=== PATIENT | male | born 1960 | race Caucasian/White ===

== ENCOUNTER 2017-04-30 09:46 | Day surgery (SDC) | payer OTHER ==
[~2017-04-30] VITALS: Ht 175.3 cm; Wt 106.6 kg
[~2017-04-30 09:46] MED LIST: COZAAR100 MG PO; METOPROLOL SUC100 MG PO; NORVASC10 MG PO
--- NOTE | 2017-04-30 11:11 | NUR ---
04/30/17 Darrius BerkleyReuben dawson SAT 95%, O2 DECREASED TO 6L VIA MASK.
--- NOTE | 2017-05-02 12:08 | OR ---
[facility] [address] [place], [place] [address] Signed PREOPERATIVE DIAGNOSES Father with the history of colonic polyps. Personal history of colonic polyps (2011). Diverticulosis. Internal hemorrhoids. External anal skin tags. POSTOPERATIVE DIAGNOSES A 7 mm polyp at 45 cm. A 7 mm polyp at 65 cm. Minimal to moderate sigmoid diverticulosis. Internal hemorrhoids. An external anal skin tag x1. PROCEDURES: Colonoscopy with hot biopsy. ESTIMATED BLOOD LOSS: None. INDICATIONS Dwaine is a 56-year-old gentleman who had come to us in 2011 for his colonoscopy . He had colonic polyps removed at that time and is also known to have the diverticulosis with internal hemorrhoids. He also has external anal skin tags. We know that his father also has colonic polyps removed. In the meantime, Dwaine says he is doing well except for his umbilical hernia. It has gotten larger. It is now incarcerated and bothers him quite a bit while at work. He wants to repair that here in the weeks ahead. For his colonoscopy, I gave him a pamphlet on colonoscopy and we looked at that together. He understands the nature of the test along with the risks including, but not limited to gas bloating, crampy abdominal pain, bleeding, perforation, requiring surgery, and missed diagnosis. He also understands the need for IV conscious sedation. Given his daily alcohol intake, we used an anesthesia provider previously and again we have scheduled his colonoscopy with an anesthesia provider. He has expressed understanding and wished to proceed. PROCEDURE NOTE Dwaine was taken into our endoscopy suite and placed in the left lateral decubitus position. He was given IV sedation per nurse business quality assurance analyst with Propofol. A digital rectal exam was performed and he does have moderate external anal skin tag on the right side. Also, his prostate gland is a little indurated, slightly enlarged, consistent with his age. The adult colonoscope was then introduced and advanced all around into the cecum under direct visualization of camera without difficulty. His prep was quite good. The scope was then slowly withdrawn. The above-mentioned polyps were easily removed with the help of hot biopsy forceps. Once again, we could see the sigmoid diverticulosis. They were minimal to moderate in size, minimal to moderate in number and scattered about. The Electronically Signed By: SHEILA MATTHEWS MD 05/02/17 1208 PATIENT NAME: DWAINE GRANADOS OPERATIVE REPORT DATE OF : 56 PHYSICIAN: SHEILA MATTHEWS MD REPORT #: [id number] REPORT IS CONFIDENTIAL AND NOT TO BE RELEASED WITHOUT AUTHORIZATION [facility] [address] [place], [place] [address] Signed rectum was unremarkable. Upon retroflexion of scope, he does have a single dominant internal anal hemorrhoid column. After this, the gas was suctioned out, the colonoscope removed. Dwaine tolerated the procedure quite well. RECOMMENDATIONS I will see Dwaine back in my office in 7 to 14 days to review his results. He will need to stay on the 5-year rotation. MD ADRIANNE Pink/Levi /[id number] cc: Dr. Thony Esteves Electronically Signed By: SHEILA MATTHEWS MD 05/02/17 1208 PATIENT NAME: DWAINE GRANADOS OPERATIVE REPORT DATE OF : 56 PHYSICIAN: SHEILA MATTHEWS MD REPORT #: [id number] REPORT IS CONFIDENTIAL AND NOT TO BE RELEASED WITHOUT AUTHORIZATION
== END 2017-04-30 11:36 | disposition home or self-care (01) ==
LOC: DS 09:46 → OPS 09:46
PROVIDERS: Colon & Rectal Surgery
PROC: 0DBE8ZX Excision of Large Intestine, Via Natural or Artificial Opening Endoscopic, Diagnostic (ICD-10-PCS; principal; 2017-04-30 10:30)
DX: K63.5 Polyp of colon (principal); K64.4 Residual hemorrhoidal skin tags; K64.8 Other hemorrhoids; K57.30 Diverticulosis of large intestine without perforation or abscess without bleeding; I10 Essential (primary) hypertension; G47.33 Obstructive sleep apnea (adult) (pediatric); Z87.11 Personal history of peptic ulcer disease; Z86.010 Personal history of colon polyps; Z83.71 Family history of colonic polyps; Z87.891 Personal history of nicotine dependence; Z98.42 Cataract extraction status, left eye; Z98.52 Vasectomy status; Z98.890 Other specified postprocedural states
CPT/HCPCS: 00810; J2250; J2704; J3010; J7120

== ENCOUNTER 2017-05-16 07:00 | Day surgery (SDC) | payer OTHER ==
[~2017-05-16] VITALS: Ht 175.3 cm; Wt 106.1 kg
--- NOTE | 2017-05-16 10:07 | NUR ---
05/16/17 1007 Zoila Menchaca 0954 ARRIVED VIA STRETCHER TO PACU VERY SLEEPY. 1005 PT AWAKE WITH NO C/O'S AT THIS TIME.
[2017-05-16] MEDS ORDERED: NORCO 10-325 T1 EACH PO (10:12)
--- NOTE | 2017-05-16 12:03 | NUR ---
AMB WELL. DENIES NEED TO VOID. RATES PAIN 3/10. STATES THIS IS ACCEPTABLE. WANTS TO GO HOME.
--- NOTE | 2017-05-16 12:04 | NUR ---
HAS EATEN CRACKERS AND JELLO AND DRANK 2 CUPS COFFEE.
--- NOTE | 2017-05-16 12:48 | NUR ---
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 HIS DOESN'T GO TO WORK FOR 2 WKS, SAID SHE WILL KEEP AN EYE ON HIM. I FOUND HIM PLEASANT, SEEMED PREPARED, ALERT AND ORIENTED. DECLINED PRAYER AT THIS TIME
--- NOTE | 2017-05-17 11:54 | OR ---
[facility] [address] [place], [place] [address] Signed DATE OF SERVICE: 05/16/2017 PREOPERATIVE DIAGNOSIS: Incarcerated umbilical hernia (15 mm). POSTOPERATIVE DIAGNOSIS: Incarcerated umbilical hernia (15 mm). PROCEDURE: Primary umbilical herniorrhaphy with intraabdominal Ventralex mesh (8 cm). ESTIMATED BLOOD LOSS: None. INDICATIONS: Dwaine is a 56-year-old gentleman who came to the office with an incarcerated umbilical hernia. He said he has had it for quite a few years. 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 He does a l ot of heavy work and he has to lean up against the edge of the counter and so forth. He said the hernia was getting larger and more tender to the point it was affecting him at work, consequently, he had mentioned it to his primary care provider. Sure enough, in the office, he has an incarcerated broad umbilical hernia. I gave him a booklet on hernias and we looked at that together in detail. He understands the nature of an umbilical hernia along with the difference between the primary suture repair and a mesh repair. He also understands expected intraop and postop course. There is risk including, but not limited to bleeding, infection, scarring, change in contour of the skin, damage to bowel, infection of mesh requiring removal, recurrent hernias and chronic pain. He had expressed understanding and wished to proceed. PROCEDURE NOTE: I met with Dwaine and his in the preop area. We all agreed we were repairing the umbilical hernia. After this, he was taken into the operating room and placed in the supine position under general endotracheal tube anesthesia. He was given preoperative antibiotics along with subcutaneous heparin. SCDs were utilized. He was then prepped and draped in the usual sterile fashion. All trocars were placed in usual positions under direct visualization of camera without difficulty. We utilized our standard infraumbilical transverse incision and carried it down around the umbilicus bluntly and with the cautery. We reduced quite a bit of incarcerated omentum and placed back into the abdomen. The hernia sac had been excised and passed off the field. We then placed our 8-cm round Ventralex mesh in the abdominal cavity and brought it up flush against the posterior abdominal wall. The fascial defect was closed transversely with a running #1 Prolene suture. Several passes of the suture went through the tab on the mesh to help hold it in place. The tab was then cut, flushed with the abdominal wall and discarded. After this, local anesthetic was copiously injected into the operative field. The wound Electronically Signed By: SHEILA MATTHEWS MD 05/17/17 1154 PATIENT NAME: DWAINE GRANADOS OPERATIVE REPORT DATE OF : 56 PHYSICIAN: SHEILA MATTHEWS MD REPORT #: [id number] REPORT IS CONFIDENTIAL AND NOT TO BE RELEASED WITHOUT AUTHORIZATION [address] [address] Signed was irrigated and suctioned out until clear. The umbilical skin was held down the midline fascia with an interrupted 2-0 PDS suture. The skin and dermis was then reapproximated with interrupted 3-0 subcuticular Monocryl sutures. Dry gauze and tape was then applied. Dwaine was then awakened from his anesthesia, extubated in the OR, taken to recovery room in stable condition. MD ADRIANNE Pink/Levi /[id number] cc: MD Dr. Thony Pink Electronically Signed By: SHEILA MATTHEWS MD 05/17/17 1154 PATIENT NAME: DWAINE GRANADOS OPERATIVE REPORT DATE OF : 56 PHYSICIAN: SHEILA MATTHEWS MD REPORT #: [id number] REPORT IS CONFIDENTIAL AND NOT TO BE RELEASED WITHOUT AUTHORIZATION
== END 2017-05-16 12:00 | disposition home or self-care (01) ==
LOC: DS 07:00
PROVIDERS: Colon & Rectal Surgery
PROC: 0WUF0JZ Supplement Abdominal Wall with Synthetic Substitute, Open Approach (ICD-10-PCS; principal; 2017-05-16 08:45)
DX: K42.0 Umbilical hernia with obstruction, without gangrene (principal); I10 Essential (primary) hypertension; G47.33 Obstructive sleep apnea (adult) (pediatric); Z86.010 Personal history of colon polyps; Z98.890 Other specified postprocedural states; Z79.899 Other long term (current) drug therapy; Z98.42 Cataract extraction status, left eye; Z98.52 Vasectomy status; Z87.891 Personal history of nicotine dependence
CPT/HCPCS: 00750; C1781; J0690; J1644; J2250; J2405; J2704; J2710; J3010; J7120

== ENCOUNTER 2018-03-15 07:47 | Emergency (ER) | payer OTHER ==
[~2018-03-15] VITALS: Ht 175.3 cm; Wt 108.9 kg
[~2018-03-15 07:47] MED LIST changes: +NORCO 10-325 T1 EACH PO
[2018-03-15] MEDS ORDERED: ELIQUIS2.5 MG PO (08:17)
[2018-03-15] MEDS ORDERED: HYDROCHLOROTH12.5 M1 PO (09:35)
--- NOTE | 2018-03-16 07:06 | EKG ---
[facility] [address] [facility] [place], [place] [address] Signed Atrial fibrillation Cannot rule out Anterior infarct , age undetermined Abnormal ECG No previous ECGs available Confirmed by AMAN LAY MD ([id number]) on 03/16/2018 7:06:14 AM Electronically Signed By: AMAN LAY MD 03/16/18 0706 PATIENT NAME: CLEMENCIA GRANADOS Electrocardiogram DATE OF : 56 PHYSICIAN: AMAN LAY MD REPORT #: [id number] REPORT IS CONFIDENTIAL AND NOT TO BE RELEASED WITHOUT AUTHORIZATION
== END 2018-03-15 09:48 | disposition home or self-care (01) ==
LOC: ED 07:47
DX: I80.02 Phlebitis and thrombophlebitis of superficial vessels of left lower extremity (principal); Z87.891 Personal history of nicotine dependence; Z79.899 Other long term (current) drug therapy
CPT/HCPCS: 71045; 80048; 83880; 84484; 85025; 85610; 85730; 93005; 93010; 93971; 99284

== ENCOUNTER 2021-02-13 18:12 | Emergency (ER) | payer OTHER ==
[~2021-02-13] VITALS: Ht 175.3 cm; Wt 111.1 kg
[~2021-02-13 18:12] MED LIST changes: +ELIQUIS2.5 MG PO; +HYDROCHLOROTH12.5 M1 PO
[2021-02-13] MEDS ORDERED: ESZOPICLONE2 MG PO (18:33)
[2021-02-13] MEDS ORDERED: FUROSEMIDE40 MG PO (18:33)
[2021-02-13] MEDS ORDERED: FAMCICLOVIR500 MG PO (19:08)
[2021-02-13] MEDS ORDERED: PREDNISONE20 MG PO (19:08)
== END 2021-02-13 19:12 | disposition home or self-care (01) ==
LOC: ED 18:12
DX: G51.0 Bell's palsy (principal); I48.91 Unspecified atrial fibrillation; I10 Essential (primary) hypertension; Z87.891 Personal history of nicotine dependence; Z79.899 Other long term (current) drug therapy
CPT/HCPCS: 99284; J7512

== ENCOUNTER 2023-05-14 11:04 | Observation (INO) | payer OTHER | END 2023-05-16 15:30 | disposition home or self-care (01) | LOC: ED 11:04 → MS 13:29 | PROVIDERS: ADMIT Internal Medicine | DX: E87.1 Hypo-osmolality and hyponatremia (principal); I11.0 Hypertensive heart disease with heart failure; I50.9 Heart failure, unspecified; E66.01 Morbid (severe) obesity due to excess calories; Z68.41 Body mass index [BMI] 40.0-44.9, adult ==

== ENCOUNTER 2023-07-18 05:53 | Day surgery (SDC) | payer OTHER ==
[2023-07-14 08:30] VITALS: BP 127/70
[~2023-07-18] VITALS: Ht 172.7 cm; Wt 109.1 kg
[~2023-07-18 05:53] MED LIST changes: +CIPROFLOXACIN500 MG PO; +CLONIDINE HCL0.1 M1 PO; +DULOXETINE HCL60 MG PO; +ELIQUIS5 MG PO; +ESZOPICLONE2 MG PO; +ESZOPICLONE3 MG PO; +FAMCICLOVIR500 MG PO; +FLOMAX0.4 MG PO; +FUROSEMIDE40 MG PO; +IRBESARTAN150 MG PO; +PREDNISONE20 MG PO; +SODIUM CHLORI1000 M2 PO
[2023-07-18 06:10] VITALS: BP 107/60
[2023-07-18 06:25] LABS: BASOPHILS 1.1 % (0-2); EOSINOPHILS 0.2 % (0-6); HEMATOCRIT 23.6 % (35.0-50.0); HEMOGLOBIN 8.1 g/dL (12.0-18.0); LYMPHOCYTES 18.6 % (24-44); MCH 27.9 (27-36); MCHC 34.5 g/dl (30-36); MCV 80.8 fl (81-99); NEUTROPHILS 73.1 % (39-80); PLATELET COUNT 243 K/uL (140-440); RBC 2.92 M/ul (4.3-5.7); RDW 16.6 (10.5-15.0)
[2023-07-18 06:32] LABS: ANION GAP 12.3 (7-21); BUN/CREATININE RATIO 6.09 (6.0-28.6); CALCIUM 8.3 mg/dL (8.5-10.1); CREATININE, SERUM 0.82 mg/dL (0.70-1.30); POTASSIUM 4.3 mmol/L (3.5-5.1)
--- NOTE | 2023-07-18 07:48 | NUR ---
PT IN GOOD SPIRITS. CONSENTED TO PRAYER. PRAYED FOR SUCCESSFUL PROCEDURE AND ONGOING BLESSINBG.
--- NOTE | 2023-07-18 07:58 | NUR ---
LABS ABNORMAL DR WEBB IN AND NOT DOING HERNIA REPAIR. WILL DO UPPER ENDOSCOPY WITH POOSIBLE BIOPSY. CONSENT SIGNED. ENDOSCOPY ORDERS ON CHART.
--- NOTE | 2023-07-18 08:30 | NUR ---
07/18/23 0830 Kiana Aleman 0827: PT ARRIVES TO PACU AWAKE AND ALERT. REPORTING HE NEEDS TO PASS GAS, HE IS ENCOURAGED TO DO. AFTERWARDS HE REPORTS THAT HE HAS NO PAIN SINCE PASSING GAS.
[2023-07-18 08:51] VITALS: BP 135/67
--- NOTE | 2023-07-18 19:07 | OR ---
[facility] [address] [place], [place] [address] Signed DATE OF OPERATION: 07/18/2023 SURGEON: Brody Webb MD PREOPERATIVE DIAGNOSES: 1. Bilateral inguinal hernia, right greater than left. 2. Persistent nausea, history of peptic ulcer. 3. Underlying multiple medical problems including recently hyponatremia and anemia (hematocrit 23.6). POSTOPERATIVE DIAGNOSES: Hiatal hernia without esophagitis; mild chronic gastritis and duodenitis, no evidence of ulcer. CLOtest negative. PROCEDURE: Esophagogastroduodenoscopy with biopsy. ANESTHESIA: Intravenous sedation, fentanyl 100 mcg and Versed 3 mg. INDICATIONS: This 62-year-old white man is a patient of Dr. Ro and was recently referred with findings of bilateral hernia, right greater than left. The plan for right inguinal hernia was made for today. The patient has underlying other medical issues including home oxygen requirement, a relatively recently discovered right renal mass, for which evaluation has been undertaken and a history of hyponatremia and recently anemia. A plan for right inguinal hernia was made for today. His preoperative laboratory studies showed sodium of 127 with bilirubin of 2.8, other liver enzymes normal and a creatinine of 0.89. His white count was 5.6 with his hematocrit was 24.7, this was on July 14. A repeat lab study was obtained today prior to operation, which showed his sodium lower at 126 and creatinine 0.82, and hematocrit now 23.6. Anesthesia provider, Bladimir Garvey WAREHOUSE COORDINATOR declined general anesthesia for inguinal hernia based on his sodium and his hematocrit. The patient has been off his Eliquis prescription and was prepared for hernia repair today. On the basis of his nausea, prior history of peptic disease, and progressive anemia, I have recommended that instead of hernia repair, he undergo upper endoscopy under moderate sedation. He agrees to this understands the risk of bleeding, infection, and perforation. Anesthesia provider declines to participate in the IV sedation and I was to give it myself. Electronically Signed By: BRODY WEBB MD 07/18/23 1907 PATIENT NAME: CLEMENCIA GRANADOS OPERATIVE REPORT DATE OF : 56 REPORT #: [id number] PHYSICIAN: BRODY WEBB MD PCP: HOWARD RO MD REPORT IS CONFIDENTIAL AND NOT TO BE RELEASED WITHOUT AUTHORIZATION [facility] [address] [place] [id number] Signed FINDINGS: He tolerated the moderate anesthesia well. He had no hypotension, dysrhythmia, or hypoxemia. Upper endoscopy defined a normal-appearing esophagus. He had a hiatal hernia. There was mild antral gastritis and duodenitis, but no sign of actual ulcer. There appeared to be a superficial duodenal polyp, which was excised as well. CLOtest was negative at 15 minutes postprocedure. DESCRIPTION OF PROCEDURE: The patient was brought to the surgical endoscopy suite and placed in lateral decubitus position. Lidocaine hypopharyngeal spray anesthetic was applied to the hypopharynx. He was given intravenous sedation with full cardiopulmonary monitoring, which he tolerated well. A bite block was placed. An Olympus video upper endoscope was passed into the hypopharynx. The vocal cords appeared normal. The scope was advanced to the esophagus throughout its length, it was normal. The scope was passed to the stomach, which was insufflated with air. There was no sign of bile or other finding of note. There was mild antral gastritis. The pylorus was normal. Scope was passed through into the duodenum. The duodenum had mild inflammatory change, but no sign of ulceration. There was a somewhat flat discrete polyp, which was excised. An additional biopsies taken to assess for celiac disease. The scope was withdrawn and biopsies taken of the antrum for both RODRIGO and pathologic testing. Retroflexed view showed a small hiatal hernia. The scope was straightened, withdrawn, and biopsies taken of the distal esophagus, which appeared entirely normal. The remaining esophagus was normal. The patient tolerated the procedure well, was taken to the recovery room in good condition. CONCLUDING DIAGNOSIS: No sign of lesion to account for anemia on upper endoscopy at this time. PLAN: He has some suspicion for biliary disease as the underlying source of his nausea, though he has multiple other medical problems that could account for it. We will make arrangements to check a gallbladder ultrasound. Additionally, he may require colonoscopy under IV sedation also. We will initiate PPI medication, Prilosec 20 mg a day. I would like to see him back in the office within the next two weeks. Ultimately, the right inguinal hernia, and subsequently left inguinal hernia will be repaired when he is more fully acceptable from an anesthesia perspective. Brody Webb MD Electronically Signed By: BRODY WEBB MD 07/18/23 1907 PATIENT NAME: CLEMENCIA GRANADOS OPERATIVE REPORT DATE OF : 56 REPORT #: [id number] PHYSICIAN: BRODY WEBB MD PCP: HOWARD RO MD REPORT IS CONFIDENTIAL AND NOT TO BE RELEASED WITHOUT AUTHORIZATION [address] [address] Signed /[facility] /[id number] cc: Dr. Ro Copies: ~ Electronically Signed By: BRODY WEBB MD 07/18/23 1907 PATIENT NAME: CLEMENCIA GRANADOS OPERATIVE REPORT DATE OF : 56 REPORT #: [id number] PHYSICIAN: BRODY WEBB MD PCP: HOWARD RO MD REPORT IS CONFIDENTIAL AND NOT TO BE RELEASED WITHOUT AUTHORIZATION
--- NOTE | 2023-07-22 17:31 | PATH ---
[facility] [address] [place], [place] [address] Signed SPECIMEN(S): A DUODENUM POLYP SPECIMEN(S): B DUODENAL BIOPSY SPECIMEN(S): C ANTRUM/ANTRAL BIOPSY SPECIMEN(S): D LOWER ESOPHAGEAL BIOPSY SPECIMEN SOURCE: A. DUODENUM POLYP B. DUODENAL BIOPSY C. ANTRUM/ANTRAL BIOPSY D. LOWER ESOPHAGEAL BIOPSY CLINICAL HISTORY: Possible gastric ulcer. Small hiatal, mid duodenitis. FINAL PATHOLOGIC DIAGNOSIS: A. Duodenum polyp: - Benign duodenal mucosa with Faviola's gland hyperplasia and focal polypoid features. - Negative for significant epithelial atypia. B. Duodenal biopsy: - Benign duodenal mucosa, negative for specific diagnostic abnormality. C. Antrum / antral biopsy: - Benign gastric antral-type mucosa with focal slight chronic inflammation. - Negative for evidence of helicobacter organisms no routine HE-stained sections. D. Lower esophageal biopsy: - Benign esophageal and gastric-type mucosa, negative for specialized intestinal metaplasia or dysplasia. - Negative for increased esophageal epithelial eosinophils. JVR:[facility] MICROSCOPIC EXAMINATION: Histologic sections of all submitted blocks are examined by light microscopy. These findings, together with the gross examination, support the pathologic diagnosis. GROSS DESCRIPTION: A. The specimen, labeled and designated "Angy duodenum polyp," is received in formalin and consists of two smith soft tissue fragments, ranging from 0.2-0.4 cm. Entirely submitted in (A1). B. The specimen, labeled and designated "Angy duodenal biopsy," is received PATIENT NAME: ANGYCLEMENCIA ELLIOTT PATHOLOGY DATE OF : 56 REPORT #: [id number] PHYSICIAN: SWETHA JOHNSON PCP: HOWARD RO MD REPORT IS CONFIDENTIAL AND NOT TO BE RELEASED WITHOUT AUTHORIZATION [facility] [address] [place], [place] [address] Signed in formalin and consists of one smith soft tissue fragment, 0.4 cm. Entirely submitted in (B1). C. The specimen, labeled and designated "Angy, antral biopsy," is received in formalin and consists of two smith soft tissue fragments, ranging from 0.2-0.4 cm. Entirely submitted in (C1). D. The specimen, labeled and designated "Angy, lower esophageal biopsy," is received in formalin and consists of three smith soft tissue fragments, ranging from 0.1-0.6 cm. Entirely submitted in (D1). VB (under the direct supervision of a pathologist) The Gross Description was prepared using a voice recognition system. The report was reviewed for accuracy; however, sound-alike word errors, addition and/or deletions may occur. If there is any question about this report, please contact Client Services. PERFORMING LABORATORY: Technical component was performed by [facility], [address] [place] [address] (CLIA# [id number]). Professional interpretation was performed by [facility], [address] [place] [id number] (CLIA#: [id number]). Diagnostician: Isidoro Kate MD Pathologist Electronically Signed 07/22/2023 Copies: ~ PATIENT NAME: CLEMENCIA GRANADOS PATHOLOGY DATE OF : 56 REPORT #: [id number] PHYSICIAN: SWETHA PATHOLOGY PCP: HOWARD RO MD REPORT IS CONFIDENTIAL AND NOT TO BE RELEASED WITHOUT AUTHORIZATION
== END 2023-07-18 09:05 | disposition home or self-care (01) ==
LOC: DS 05:53
PROVIDERS: ATTEND Surgery
PROC: 0DB68ZX Excision of Stomach, Via Natural or Artificial Opening Endoscopic, Diagnostic (ICD-10-PCS; 2023-07-18)
PROC: 0DB38ZX Excision of Lower Esophagus, Via Natural or Artificial Opening Endoscopic, Diagnostic (ICD-10-PCS; principal; 2023-07-18 07:30)
DX: K44.9 Diaphragmatic hernia without obstruction or gangrene (principal); K40.20 Bilateral inguinal hernia, without obstruction or gangrene, not specified as recurrent; N28.89 Other specified disorders of kidney and ureter; I48.20 Chronic atrial fibrillation, unspecified; Z99.81 Dependence on supplemental oxygen; K29.50 Unspecified chronic gastritis without bleeding; K29.80 Duodenitis without bleeding
CPT/HCPCS: 36415; 80048; 85025; J1100; J1885; J2001; J2250; J2405; J2704; J3010

== ENCOUNTER 2023-07-25 06:00 | Day surgery (SDC) | payer OTHER ==
[~2023-07-25] VITALS: Ht 172.7 cm; Wt 110.0 kg
[2023-07-25 06:14] VITALS: BP 130/61
[2023-07-25] MEDS ORDERED: CLONIDINE HCL0.1 M1 PO (06:16)
[2023-07-25] MEDS ORDERED: ESZOPICLONE3 MG PO (06:16)
--- NOTE | 2023-07-25 08:22 | NUR ---
07/25/23 0822 Sheets,Luisa 0803 PT ARRIVED TO PACU ON 10L VIA MASK, ORAL AIRWAY IN PLACE. RESP EVEN AND UNLABORED. 0807 PT REACTIVE AND STARTS COUGHING, ORAL AIRWAY REMOVED. PT REORIENTED TO PACU AND DENIES PAIN, PT REPORTS BEING "GASSY" PT ENCOURAGED TO PASS GAS. 0809 O2 REMOVED. 0822 HOB INCREASED SLIGHTLY AND PLAN OF CARE DISCUSSED.
[2023-07-25 08:49] LABS: BASOPHILS 0.4 % (0-2); EOSINOPHILS 0.2 % (0-6); HEMATOCRIT 21.5 % (35.0-50.0); HEMOGLOBIN 7.4 g/dL (12.0-18.0); LYMPHOCYTES 13.4 % (24-44); MCH 27.8 (27-36); MCHC 34.4 g/dl (30-36); MCV 80.7 fl (81-99); MONOCYTES 8.4 % (0-12); NEUTROPHILS 77.6 % (39-80); PLATELET COUNT 226 K/uL (140-440); RBC 2.67 M/ul (4.3-5.7); RDW 16.5 (10.5-15.0)
[2023-07-25 09:00] VITALS: BP 119/66
[2023-07-25 09:03] LABS: ALBUMIN 2.5 g/dL (3.4-5.0); ALBUMIN/GLOBULIN RATIO 1.04 (1.1-2.4); ANION GAP 9.7 (7-21); BUN/CREATININE RATIO 8.45 (6.0-28.6); CALCIUM 8.1 mg/dL (8.5-10.1); CREATININE, SERUM 0.71 mg/dL (0.70-1.30); POTASSIUM 3.7 mmol/L (3.5-5.1); PROTEIN, TOTAL 4.9 g/dL (6.4-8.2)
--- NOTE | 2023-07-28 08:29 | OR ---
[facility] [address] [place], [place] [address] Signed DATE OF OPERATION: 07/25/2023 SURGEON: Brody Webb MD PREOPERATIVE DIAGNOSES: 1. Recently diagnosed significant anemia, hematocrit 24; recent negative upper endoscopy. 2. Known 2.6 cm right mid pole renal mass. 3. Multiple medical problems including atrial fibrillation with preserved ejection fraction 60%. 4. Bilateral inguinal hernia, right greater than left. POSTOPERATIVE DIAGNOSES: 1. Diverticulosis of sigmoid. 2. Internal hemorrhoid. 3. Scattered arteriovenous malformations of colon. 4. Small polyp, hepatic flexure. OPERATIVE PROCEDURE: Total colonoscopy to cecum with cold morcellation polypectomy x1. ANESTHESIA: Intravenous sedation, propofol infusion, Brody Magaña CRNA. INDICATION: This is a 62-year-old white man who is a patient of Dr. Ro and was referred with symptomatic right inguinal hernia for repair. He has atrial fibrillation and is chronically anticoagulated with Eliquis. He presented last week for hernia repair. In his preop labs, he was found to be hyponatremic with sodium of 126, which has been an issue in the past. Additionally, he was noted to be anemic with hematocrit 24. Repeat studies show durability of those findings. On that basis, Anesthesia declined to provide general anesthetic for hernia repair; he instead underwent upper endoscopy to evaluate the anemia by IV sedation. There was no lesion to account for the anemia. On the basis of the significant anemia and despite no overt bleeding that is known, I have recommended colonoscopy. He has seen Dr. Ro regarding his hyponatremia, which no doubt is related to his underlying cardiac situation. He remains hyponatremic and anemic. It is today to undergo colonoscopy under propofol sedation. The risk of bleeding, infection, perforation, and so forth were reviewed with him. He understands, wished to proceed. FINDINGS: Electronically Signed By: BRODY WEBB MD 07/28/23 0829 PATIENT NAME: CLEMENCIA GRANADOS OPERATIVE REPORT DATE OF : 56 REPORT #: [id number] PHYSICIAN: BRODY WEBB MD PCP: HOWARD RO MD REPORT IS CONFIDENTIAL AND NOT TO BE RELEASED WITHOUT AUTHORIZATION [facility] [address] [place], [place] [address] Signed The prep was good. Complete colonoscopy was undertaken to the cecum without question. He had no sign of active bleeding and no neoplasm per se. He did have a small polyp at the hepatic flexure and scattered arteriovenous malformation throughout the colon. There were few diverticula as well in the sigmoid and retroflexed view confirmed internal hemorrhoids. The actual source of his anemia remains uncertain. DESCRIPTION OF PROCEDURE: The patient was brought to the endoscopy suite and placed in lateral decubitus position, given intravenous sedation a point of slurred speech and nystagmus. Full cardiopulmonary monitoring was maintained. Digital rectal examination was normal. An Olympus video colonoscope was passed in the rectum and manipulated throughout the colon noting diverticula of the sigmoid and scattered arteriovenous malformations. The scope was advanced ultimately to the cecum. The ileocecal valve and appendiceal orifice were normal. The scope was withdrawn from that point. Examination showed a small polyp at the hepatic flexure. This was excised with cold morcellation technique. Further withdrawal confirmed additional arteriovenous malformations as well as diverticulosis of the sigmoid and left colon. Retroflexed view of the rectum confirmed a single large internal hemorrhoid appeared not to be bleeding. The scope was straightened, withdrawn and removed. The patient was taken to the recovery room in good condition. Conclusion diagnosis, uncertain as to source of anemia. No evidence of upper or colonic source of anemia unless he has had occult bleeding from arteriovenous malformations while anticoagulated with Eliquis. He does remain with bilateral inguinal hernias, right more symptomatic than the left. He has had generalized abdominal pain; a plan for gallbladder workup has been outlined to him; review of his record shows an ultrasound of the abdomen in January of 2023 showed no evidence of gallstones or gallbladder wall thickening. Whether or not the inguinal hernia is accounting for his abdominal pain remains uncertain. PLAN: We will have patient call in the coming week to outline a plan of management, which may include proceeding to right inguinal hernia repair as an originally planned. We will repeat his CBC and Chem 20 plus reticulocyte count today. Brody Webb MD Electronically Signed By: BRODY WEBB MD 07/28/23 0829 PATIENT NAME: CLEMENCIA GRANADOS OPERATIVE REPORT DATE OF : 56 REPORT #: [id number] PHYSICIAN: BRODY WEBB MD PCP: HOWARD RO MD REPORT IS CONFIDENTIAL AND NOT TO BE RELEASED WITHOUT AUTHORIZATION [facility] [address] [place] [address] Signed /[facility] /[id number] Copies: ~ Electronically Signed By: BRODY WEBB MD 07/28/23 0829 PATIENT NAME: CLEMENCIA GRANADOS OPERATIVE REPORT DATE OF : 56 REPORT #: [id number] PHYSICIAN: BRODY WEBB MD PCP: HOWARD RO MD REPORT IS CONFIDENTIAL AND NOT TO BE RELEASED WITHOUT AUTHORIZATION
--- NOTE | 2023-07-29 14:42 | PATH ---
[facility] [address] [place] [address] Signed SPECIMEN(S): A HEPATIC FLEXURE POLYP SPECIMEN SOURCE: A. HEPATIC FLEXURE POLYP CLINICAL HISTORY: Colonoscopy. Anemia FINAL PATHOLOGIC DIAGNOSIS: Hepatic flexure polyp: - Tubular adenoma (one fragment). JVR:cml MICROSCOPIC EXAMINATION: Histologic sections of all submitted blocks are examined by light microscopy. These findings, together with the gross examination, support the pathologic diagnosis. GROSS DESCRIPTION: The specimen, labeled and designated "Angy, hepatic flexure polyp," is received in formalin and consists of two smith soft tissue fragments, ranging from 0.1-0.4 cm. Entirely submitted in (A1). VB (under the direct supervision of a pathologist) The Gross Description was prepared using a voice recognition system. The report was reviewed for accuracy; however, sound-alike word errors, addition and/or deletions may occur. If there is any question about this report, please contact Client Services. PERFORMING LABORATORY: Technical component was performed by [facility], [address] [place] [id number] (CLIA# [id number]). Professional interpretation was performed by [employer] Pathology - [facility], [address] [place] [id number] (CLIA#: [id number]). Diagnostician: Isidoro Kate MD Pathologist Electronically Signed 07/29/2023 Copies: PATIENT NAME: CLEMENCIA GRANADOS PATHOLOGY DATE OF : 56 REPORT #: [id number] PHYSICIAN: SWETHA PATHOLOGY PCP: HOWARD RO MD REPORT IS CONFIDENTIAL AND NOT TO BE RELEASED WITHOUT AUTHORIZATION [address] [address] Signed ~ PATIENT NAME: CLEMENCIA GRANADOS PATHOLOGY DATE OF : 56 REPORT #: [id number] PHYSICIAN: SWETHA PATHOLOGY PCP: HOWARD RO MD REPORT IS CONFIDENTIAL AND NOT TO BE RELEASED WITHOUT AUTHORIZATION
== END 2023-07-25 09:10 | disposition home or self-care (01) ==
LOC: DS 06:00 → OPS 06:00 → DS 07:30 → OPS 09:10 → DS 12:00
PROVIDERS: ATTEND Surgery
PROC: 0DBL8ZZ Excision of Transverse Colon, Via Natural or Artificial Opening Endoscopic (ICD-10-PCS; principal; 2023-07-25 07:30)
DX: D12.3 Benign neoplasm of transverse colon (principal); K55.20 Angiodysplasia of colon without hemorrhage; K64.8 Other hemorrhoids; K57.30 Diverticulosis of large intestine without perforation or abscess without bleeding; K40.20 Bilateral inguinal hernia, without obstruction or gangrene, not specified as recurrent; I48.20 Chronic atrial fibrillation, unspecified; Z99.81 Dependence on supplemental oxygen; Z79.01 Long term (current) use of anticoagulants
CPT/HCPCS: 00811; 36415; 80053; 85025; 85045; J2704; J7121

== ENCOUNTER 2023-08-29 19:51 | Emergency (ER) | payer MEDICARE ==
[~2023-08-29] VITALS: Ht 172.7 cm; Wt 109.8 kg
--- OUTSIDE RECORDS SUMMARY | 2023-08-29 19:54 | XMS ---
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 Nancie has no Care Guidelines for this patient. Serena VISIT COUNT (12 MO.) 2 [facility] TOTAL 2 NOTE: Visits indicate total known visits. ED/UCC VISIT TRACKING (12 MO.) 08/29/2023 19:52 [facility] [place] TYPE: Emergency COMPLAINT: - CONSTIPATION 05/14/2023 11:04 [facility] [place] TYPE: Emergency COMPLAINT: - ABNORMAL LABS INPATIENT VISIT TRACKING (12 MO.) 05/14/2023 13:29 [facility] [place] TYPE: Observation COMPLAINT: - HYPONATREMIA DIAGNOSES: - Body mass index [BMI] 40.0-44.9, adult - Heart failure, unspecified - Hypertensive heart disease with heart failure - Hypo-osmolality and hyponatremia - Morbid (severe) obesity due to excess calories [email or web address]
[2023-08-29] MEDS ORDERED: OMEPRAZOLE20 MG PO (20:10)
[2023-08-29] MEDS ORDERED: TORSEMIDE10 MG PO (20:11)
[2023-08-29 20:52] LABS: BASOPHILS 0.5 % (0-2); EOSINOPHILS 0.7 % (0-6); HEMATOCRIT 25.1 % (35.0-50.0); HEMOGLOBIN 8.7 g/dL (12.0-18.0); LYMPHOCYTES 14.5 % (24-44); MCH 27.4 (27-36); MCHC 34.5 g/dl (30-36); MCV 79.4 fl (81-99); MONOCYTES 8.9 % (0-12); NEUTROPHILS 75.4 % (39-80); PLATELET COUNT 147 K/uL (140-440); RBC 3.16 M/ul (4.3-5.7); RDW 17.1 (10.5-15.0)
[2023-08-29 21:03] LABS: ALBUMIN 2.7 g/dL (3.4-5.0); ALBUMIN/GLOBULIN RATIO 0.87 (1.1-2.4); ALKALINE PHOSPHATASE 134 U/L (46-116); ALT (SGPT) 18 U/L (14-59); ANION GAP 7.4 (7-21); AST (SGOT) 25 U/L (15-37); BILIRUBIN, TOTAL 3.2 ng/dL (0.2-1.0); BUN/CREATININE RATIO 11.47 (6.0-28.6); CALCIUM 7.9 mg/dL (8.5-10.1); CARBON DIOXIDE 30 mmol/L (21-32); CHLORIDE 86 mmol/L (98-107); CREATININE, SERUM 1.22 mg/dL (0.70-1.30); GLOMERULAR FILTRATION RATE,EST 66 mL/min (>60); POTASSIUM 4.4 mmol/L (3.5-5.1); PROTEIN, TOTAL 5.8 g/dL (6.4-8.2); UREA NITROGEN 14 mg/dL (7-18)
[2023-08-29 21:07] LABS: LACTIC ACID, BLOOD 0.5 mmol/L (0.4-2.0)
[2023-08-29 21:40] LABS: INFLUENZA B NAA NEGATIVE (NEGATIVE); RESPIRATORY SYNCYTIAL VIR NAA NEGATIVE (NEGATIVE)
[2023-08-29 23:08] LABS: BILIRUBIN, URINE NEGATIVE (negative); BLOOD/HGB, URINE MODERATE (Negative); KETONE, URINE NEGATIVE (Negative); LEUK ESTERASE, URINE NEGATIVE (negative); NITRITE, URINE NEGATIVE (negative)
[2023-08-29 23:11] LABS: EPITHELIAL CELLS, URINE SQUAMOUS 1+ /lpf (0-1+); REFLEX CULTURE, URINE No (No)
[2023-08-30 01:10] VITALS: BP 124/78
--- NOTE | 2023-08-30 06:37 | EKG ---
[facility] [address] [facility] [place] [address] Signed Atrial fibrillation Low voltage QRS Cannot rule out Anterior infarct , age undetermined Abnormal ECG When compared with ECG of 14-JUL-2023 08:35, Questionable change in QRS axis Confirmed by MER ZAZUETA MD ([id number]) on 08/30/2023 6:37:15 AM Electronically Signed By: MER ZAZUETA 08/30/23 0637 PATIENT NAME: CLEMENCIA GRANADOS Electrocardiogram DATE OF : 56 PHYSICIAN: MER ZAZUETA REPORT #: [id number] REPORT IS CONFIDENTIAL AND NOT TO BE RELEASED WITHOUT AUTHORIZATION
== END 2023-08-30 01:10 | disposition short-term general hospital (02) ==
LOC: ED 19:51
PROVIDERS: Internal Medicine
DX: I11.0 Hypertensive heart disease with heart failure (principal); I50.9 Heart failure, unspecified; I31.39 Other pericardial effusion (noninflammatory); I48.91 Unspecified atrial fibrillation; Z79.01 Long term (current) use of anticoagulants; Z79.899 Other long term (current) drug therapy; Z87.891 Personal history of nicotine dependence; Z11.52 Encounter for screening for COVID-19
CPT/HCPCS: 36415; 51702; 71045; 71250; 74177; 80053; 81001; 83605; 83880; 84484; 85025; 87502; 93005; 93010; 99285-25; C9803; J0456; J0696; J1885; J1940; J7060; Q9967; U0002

== ENCOUNTER 2023-11-24 13:28 | Inpatient (IN) | payer OTHER, MEDICARE ==
[~2023-11-24] VITALS: Ht 172.7 cm; Wt 108.8 kg
[~2023-11-24 13:28] MED LIST changes: +LASIX40 MG PO; +OMEPRAZOLE20 MG PO; +TORSEMIDE10 MG PO
--- OUTSIDE RECORDS SUMMARY | 2023-11-24 13:32 | XMS ---
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 ESejal VISIT COUNT (12 MO.) 4 [facility] TOTAL 4 NOTE: Visits indicate total known visits. 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 - Personal history of nicotine dependence - Unspecified atrial fibrillation 08/29/2023 19:52 [facility] [place] TYPE: Emergency COMPLAINT: - CONSTIPATION DIAGNOSES: - Contact with and (suspected) exposure to COVID-19 - Encounter for screening for COVID-19 - Heart failure, unspecified - Hypertensive heart disease with heart failure - 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 Acute on chronic systolic (congestive) heart failure 1. Hypertensive heart and chronic kidney disease with heart failure and stage 1 through stage 4 chronic kidney disease, or unspecified chronic kidney disease 2. Acute on chronic systolic (congestive) heart failure 3. Chronic atrial fibrillation, unspecified 4. Other pericardial effusion (noninflammatory) 5. Hypo-osmolality and hyponatremia 6. Chronic kidney disease, stage 3 unspecified 7. Benign prostatic hyperplasia without lower urinary tract symptoms 8. Obstructive sleep apnea (adult) (pediatric) 9. Constipation, unspecified 10. Nonrheumatic mitral (valve) annulus calcification 11. Other disorders of glycoprotein metabolism 12. Anemia in chronic kidney disease 13. alf (current) use of anticoagulants 14. Personal history of nicotine dependence 05/14/2023 13:29 [facility] [place] TYPE: Observation COMPLAINT: - HYPONATREMIA DIAGNOSES: - Body mass index [BMI] 40.0-44.9, adult - Heart failure, unspecified - Hypertensive heart disease with heart failure - Hypo-osmolality and hyponatremia - Morbid (severe) obesity due to excess calories [email or web address]
[2023-11-24 14:46] LABS: HEMOGLOBIN 8.1 g/dL (12.0-18.0); MCHC 34.3 g/dl (30-36)
[2023-11-24 14:51] LABS: HEMATOCRIT 23.6 % (35.0-50.0); MCH 26.7 (27-36); MCV 77.9 fl (81-99); PLATELET COUNT 98 K/uL (140-440); RBC 3.03 M/ul (4.3-5.7); RDW 15.7 (10.5-15.0)
[2023-11-24 15:06] LABS: BANDS, MANUAL DIFF 4; LYMPHOCYTES, MANUAL DIFF 17; MONOCYTES, MANUAL DIFF 6; NEUTROPHILS, MANUAL DIFF 71
[2023-11-24 15:10] LABS: ALBUMIN 2.6 g/dL (3.4-5.0); ALBUMIN/GLOBULIN RATIO 0.81 (1.1-2.4); ANION GAP 12.9 (7-21); BILIRUBIN, TOTAL 1.9 ng/dL (0.2-1.0); BUN/CREATININE RATIO 22.42 (6.0-28.6); CALCIUM 8.1 mg/dL (8.5-10.1); CREATININE, SERUM 2.14 mg/dL (0.70-1.30); MAGNESIUM 2.1 mg/dL (1.8-2.4); POTASSIUM 5.9 mmol/L (3.5-5.1); PROTEIN, TOTAL 5.8 g/dL (6.4-8.2)
[2023-11-24 15:21] LABS: INFLUENZA B NAA NEGATIVE (NEGATIVE); RESPIRATORY SYNCYTIAL VIR NAA POSITIVE (NEGATIVE)
[2023-11-24] MEDS ORDERED: FUROSEMIDE 100 MG/10 ML VIAL IV ONE (16:00)
[2023-11-24 17:14] VITALS: BP 126/62
[2023-11-24] MEDS ORDERED: VENTOLIN HFA18 GM INH (17:43)
[2023-11-24] MEDS ORDERED: POTASSIUM CHLO10 MEQ PO (17:45)
[2023-11-24 17:54] LABS: ANION GAP 11.4 (7-21); BUN/CREATININE RATIO 23.44 (6.0-28.6); CREATININE, SERUM 2.09 mg/dL (0.70-1.30); POTASSIUM 5.4 mmol/L (3.5-5.1)
[2023-11-24] MEDS ORDERED: ACETAMINOPHEN 325 MG TAB PO PRN (18:15)
[2023-11-24 19:28] VITALS: BP 96/51
[2023-11-24 19:30] VITALS: BP 95/46
[2023-11-24] MEDS ORDERED: APIXABAN 5 MG TAB PO SCH (21:00)
[2023-11-24] MEDS ORDERED: SENNOSIDES/DOCUSATE 1 EA TAB PO SCH (21:00)
[2023-11-24] MEDS ORDERED: MELATONIN 3 MG TAB PO PRN (21:00)
[2023-11-24 21:47] VITALS: BP 105/59
[2023-11-24] MEDS ORDERED: TAMSULOSIN HCL 0.4 MG CAP PO SCH (23:48)
[2023-11-25 00:43] VITALS: BP 114/67
[2023-11-25 04:15] VITALS: BP 119/69
[2023-11-25 05:38] LABS: RBC 2.64 M/ul (4.3-5.7)
[2023-11-25 05:43] LABS: HEMATOCRIT 20.7 % (35.0-50.0); MCH 26.6 (27-36); MCV 78.4 fl (81-99); PLATELET COUNT 83 K/uL (140-440); RDW 15.7 (10.5-15.0)
[2023-11-25 05:48] LABS: ANION GAP 11.2 (7-21); BUN/CREATININE RATIO 23.68 (6.0-28.6); CALCIUM 7.9 mg/dL (8.5-10.1); CREATININE, SERUM 2.28 mg/dL (0.70-1.30); MAGNESIUM 2.1 mg/dL (1.8-2.4); POTASSIUM 5.2 mmol/L (3.5-5.1)
[2023-11-25 06:01] LABS: BANDS, MANUAL DIFF 3; BASOPHILS, MANUAL DIFF 2; EOSINOPHILS, MANUAL DIFF 1; LYMPHOCYTES, MANUAL DIFF 24; MONOCYTES, MANUAL DIFF 6; NEUTROPHILS, MANUAL DIFF 64
[2023-11-25 08:23] VITALS: BP 117/59
[2023-11-25] MEDS ORDERED: METOPROLOL TARTRATE 100 MG TAB PO SCH (09:00)
[2023-11-25] MEDS ORDERED: FUROSEMIDE 100 MG/10 ML VIAL IV SCH (09:00)
[2023-11-25] MEDS ORDERED: TAMSULOSIN HCL 0.4 MG CAP PO SCH (09:00)
[2023-11-25] MEDS ORDERED: LOSARTAN POTASSIUM 50 MG TAB PO SCH (09:00)
[2023-11-25] MEDS ORDERED: OXYCODONE-ACET1 EAC1 PO (10:11)
--- NOTE | 2023-11-25 11:18 | EKG ---
[facility] [address] [facility] [place] [address] Signed Atrial fibrillation Abnormal ECG When compared with ECG of 18-SEP-2023 06:17, No significant change was found Confirmed by TRUMAN TAYLOR MD ([id number]) on 11/25/2023 11:18:13 AM Electronically Signed By: TRUMAN TAYLOR 11/25/23 1118 PATIENT NAME: CLEMENCIA GRANADOS DYLANJOSÉ MIGUEL Electrocardiogram DATE OF : 56 PHYSICIAN: TRUMAN TAYLOR REPORT #: [id number] REPORT IS CONFIDENTIAL AND NOT TO BE RELEASED WITHOUT AUTHORIZATION
[2023-11-25] MEDS ORDERED: PHARMACY RENAL DOSE ADJUSTMENT 1 DOSE MISC PO SCH (12:00)
[2023-11-25 12:09] LABS: EOSINOPHILS 0.4 % (0-6); HEMATOCRIT 21.8 % (35.0-50.0); HEMOGLOBIN 7.4 g/dL (12.0-18.0); LYMPHOCYTES 17.3 % (24-44); MCH 26.6 (27-36); MCHC 34.2 g/dl (30-36); MCV 77.8 fl (81-99); MONOCYTES 14.1 % (0-12); NEUTROPHILS 67.2 % (39-80); PLATELET COUNT 73 K/uL (140-440)
[2023-11-25 13:01] VITALS: BP 103/67
[2023-11-25] MEDS ORDERED: ondansetron HCL 4 MG/2 ML VIAL IV PRN (17:00)
[2023-11-25 17:23] LABS: ANION GAP 13.7 (7-21); BUN/CREATININE RATIO 26.81 (6.0-28.6); CALCIUM 8.1 mg/dL (8.5-10.1); CREATININE, SERUM 2.2 mg/dL (0.70-1.30); POTASSIUM 5.7 mmol/L (3.5-5.1)
[2023-11-25 18:20] VITALS: BP 103/55
[2023-11-25 22:11] VITALS: BP 110/65
[2023-11-26] VITALS (7 sets, daily range): BP systolic 95–118; BP diastolic 57–75
[2023-11-26 05:36] LABS: PLATELET COUNT 74 K/uL (140-440)
[2023-11-26 05:46] LABS: HEMATOCRIT 23.6 % (35.0-50.0); MCH 26.5 (27-36); MCHC 33.9 g/dl (30-36); MCV 78.1 fl (81-99); RBC 3.02 M/ul (4.3-5.7)
[2023-11-26 05:49] LABS: ANION GAP 14.3 (7-21); BUN/CREATININE RATIO 23.32 (6.0-28.6); CALCIUM 7.9 mg/dL (8.5-10.1); CREATININE, SERUM 2.53 mg/dL (0.70-1.30); MAGNESIUM 2.3 mg/dL (1.8-2.4); POTASSIUM 5.3 mmol/L (3.5-5.1)
[2023-11-26 06:12] LABS: BANDS, MANUAL DIFF 2; LYMPHOCYTES, MANUAL DIFF 12; MONOCYTES, MANUAL DIFF 9; NEUTROPHILS, MANUAL DIFF 77
[2023-11-26] MEDS ORDERED: Calcium Gluconate in NS 1,000 MG/50 ML BAG IV ONE (07:00)
[2023-11-27] VITALS (11 sets, daily range): BP systolic 99–139; BP diastolic 67–87
[2023-11-27 07:18] LABS: BASOPHILS 2.1 % (0-2); EOSINOPHILS 0.2 % (0-6); HEMATOCRIT 24.2 % (35.0-50.0); HEMOGLOBIN 8.1 g/dL (12.0-18.0); LYMPHOCYTES 18.1 % (24-44); MCH 26.1 (27-36); MCHC 33.4 g/dl (30-36); MCV 78.2 fl (81-99); MONOCYTES 9.5 % (0-12); NEUTROPHILS 70.1 % (39-80); PLATELET COUNT 72 K/uL (140-440); RDW 16.1 (10.5-15.0)
[2023-11-27 07:30] LABS: ANION GAP 12.3 (7-21); BUN/CREATININE RATIO 23.87 (6.0-28.6); CREATININE, SERUM 2.89 mg/dL (0.70-1.30); POTASSIUM 5.3 mmol/L (3.5-5.1)
[2023-11-27] MEDS ORDERED: SODIUM CHLORIDE 1 GM TAB PO SCH (09:00)
[2023-11-27] MEDS ORDERED: FUROSEMIDE 40 MG/4 ML VIAL IV SCH (09:00)
[2023-11-27 12:12] LABS: ANION GAP 13.8 (7-21); BUN/CREATININE RATIO 24.48 (6.0-28.6); CREATININE, SERUM 2.9 mg/dL (0.70-1.30); POTASSIUM 5.8 mmol/L (3.5-5.1)
[2023-11-27] MEDS ORDERED: diphenhydrAMINE HCL 50 MG/ML VIAL IV ONE (15:15)
[2023-11-27 16:24] LABS: BASE EXCESS, BLOOD GAS -4.2 mmol/L (-2-2); HCO3, BLOOD GAS 20.4 mmol/L (22-26); O2 SATURATION, BLOOD GAS 98.9 % (95.0-100.0); PCO2, BLOOD GAS 34.1 mmHg (35-45); PH, BLOOD GAS 7.39 (7.35-7.45); PO2, BLOOD GAS 94 mmHg (80-100); TOTAL CO2, BLOOD GAS 21.5
[2023-11-27 16:26] LABS: BASOPHILS 1.4 % (0-2); EOSINOPHILS 0.3 % (0-6); HEMATOCRIT 23.1 % (35.0-50.0); HEMOGLOBIN 7.8 g/dL (12.0-18.0); LYMPHOCYTES 17.1 % (24-44); MCH 26.4 (27-36); MCHC 33.9 g/dl (30-36); MCV 77.7 fl (81-99); MONOCYTES 14.2 % (0-12); PLATELET COUNT 75 K/uL (140-440); RBC 2.98 M/ul (4.3-5.7); RDW 16.1 (10.5-15.0)
[2023-11-27 16:26] LABS: OXYGEN RECEIVED, BLOOD GAS 4L
[2023-11-27 16:36] LABS: ANION GAP 13.4 (7-21); BUN/CREATININE RATIO 24.18 (6.0-28.6); CREATININE, SERUM 3.06 mg/dL (0.70-1.30); POTASSIUM 6.4 mmol/L (3.5-5.1)
[2023-11-27] MEDS ORDERED: SODIUM POLYSTYRENE SULFONATE 15 GM/60 ML UDC PO ONE ×2 (17:15→18:15)
[2023-11-27] MEDS ORDERED: LORazepam 2 MG/ML VIAL IV PRN ×2 (17:15→23:00)
[2023-11-27] MEDS ORDERED: FUROSEMIDE 40 MG/4 ML VIAL IV ONE (17:15)
[2023-11-27 17:58] LABS: BILIRUBIN, URINE NEGATIVE (negative); BLOOD/HGB, URINE LARGE (Negative); KETONE, URINE NEGATIVE (Negative); LEUK ESTERASE, URINE NEGATIVE (negative); NITRITE, URINE NEGATIVE (negative); PH, URINE 5.5 (5-7)
[2023-11-27 18:15] LABS: CRYSTALS, URINE NONE SEEN (0-1+)
[2023-11-27 18:17] LABS: BACTERIA, URINE 1+ /hpf (negative)
[2023-11-27 18:18] LABS: CASTS, URINE NONE SEEN \\lpf; COLLECTION TYPE, URINE CLEAN CATCH; REFLEX CULTURE, URINE No (No)
[2023-11-27] MEDS ORDERED: LORazepam 2 MG/ML VIAL IV ONE (18:30)
[2023-11-27] MEDS ORDERED: CEFTRIAXONE/SODIUM CHLORIDE 2 GM/100 ML PIGGYBACK IV SCH (20:00)
[2023-11-27] MEDS ORDERED: SODIUM POLYSTYRENE SULFONATE 15 GM/60 ML UDC ONE (20:44)
[2023-11-27] MEDS ORDERED: HALOPERIDOL LACTATE 5 MG/ML VIAL ONE (22:21)
[2023-11-27] MEDS ORDERED: HALOPERIDOL LACTATE 5 MG/ML VIAL IM ONE (23:00)
[2023-11-27] MEDS ORDERED: HALOPERIDOL LACTATE 5 MG/ML VIAL IV PRN (23:00)
[2023-11-28] VITALS (30 sets, daily range): BP systolic 72–150; BP diastolic 44–127
[2023-11-28 05:42] LABS: HEMOGLOBIN 6.8 g/dL (12.0-18.0); MCH 26.5 (27-36); MCHC 34.2 g/dl (30-36); MCV 77.3 fl (81-99); PLATELET COUNT 72 K/uL (140-440); RBC 2.59 M/ul (4.3-5.7)
[2023-11-28 05:48] LABS: ANION GAP 16.9 (7-21); CALCIUM 7.4 mg/dL (8.5-10.1); CREATININE, SERUM 3.04 mg/dL (0.70-1.30); POTASSIUM 5.9 mmol/L (3.5-5.1)
[2023-11-28 06:23] LABS: BASOPHILS, MANUAL DIFF 1; LYMPHOCYTES, MANUAL DIFF 16; MONOCYTES, MANUAL DIFF 15; NEUTROPHILS, MANUAL DIFF 68
[2023-11-28 08:00] LABS: HEMOGLOBIN 7.3 g/dL (12.0-18.0); MCH 26.7 (27-36); MCHC 34.7 g/dl (30-36); MCV 76.9 fl (81-99); RBC 2.73 M/ul (4.3-5.7); RDW 15.8 (10.5-15.0)
[2023-11-28] MEDS ORDERED: METOPROLOL TARTRATE 100 MG TAB PO SCH (09:00)
[2023-11-28] MEDS ORDERED: QUETIAPINE FUMARATE 25 MG TAB PO SCH (12:11)
[2023-11-28 15:22] LABS: BASE EXCESS, BLOOD GAS -5.1 mmol/L (-2-2); HCO3, BLOOD GAS 19.8 mmol/L (22-26); O2 SATURATION, BLOOD GAS > 100.0 % (95.0-100.0); OXYGEN RECEIVED, BLOOD GAS 4LPM; PH, BLOOD GAS 7.36 (7.35-7.45); PO2, BLOOD GAS 130 mmHg (80-100); TOTAL CO2, BLOOD GAS 20.8
[2023-11-28] MEDS ORDERED: SODIUM POLYSTYRENE SULFONATE 15 GM/60 ML UDC PO ONE (17:00)
[2023-11-28] MEDS ORDERED: LACTATED RINGER'S 1,000 ML IV SCH (17:45)
[2023-11-28] MEDS ORDERED: LIDOCAINE 2% VISCOUS 6 ML SYR TOP ONE (19:00)
[2023-11-28 19:15] LABS: HEMATOCRIT 19.8 % (35.0-50.0); HEMOGLOBIN 6.8 g/dL (12.0-18.0); MCH 26.5 (27-36); MCHC 34.2 g/dl (30-36); MCV 77.5 fl (81-99); RBC 2.55 M/ul (4.3-5.7); RDW 15.6 (10.5-15.0)
[2023-11-28] MEDS ORDERED: LORazepam 2 MG/ML VIAL IV PRN ×3 (21:45)
[2023-11-28] MEDS ORDERED: ARTIFICIAL TEARS 15 ML BTL OU PRN (21:45)
[2023-11-28] MEDS ORDERED: MORPHINE SULFATE 4 MG/ML VIAL IV PRN (21:45)
[2023-11-28] MEDS ORDERED: ATROPINE SULFATE 1% OPTH DROPS SL PRN (21:45)
[2023-11-28] MEDS ORDERED: HALOPERIDOL LACTATE 5 MG/ML VIAL IV PRN (21:45)
--- NOTE | 2023-11-30 23:50 | EKG ---
[facility] [address] [facility] [place] [address] Signed Atrial fibrillation with rapid ventricular response Delayed R wave progression Abnormal ECG Confirmed by Pramod Doll M.D. ([id number]) on 11/30/2023 11:50:37 PM Electronically Signed By: PRAMOD DOLL MD 11/30/232349 PATIENT NAME: CLEMENCIA GRANADOS Electrocardiogram DATE OF : 56 PHYSICIAN: PRAMOD DOLL MD REPORT #: [id number] REPORT IS CONFIDENTIAL AND NOT TO BE RELEASED WITHOUT AUTHORIZATION
[2023-12-01] MEDS ORDERED: SCOPOLAMINE 1 MG/3 DAYS PATCH 1 EACH TDSY TD SCH (09:00)
== END 2023-11-29 05:55 | DRG 291 ==
LOC: ED 13:28 → MS 13:31 → CCU 11-27 18:40
PROVIDERS: Emergency Medicine; Internal Medicine; ADMIT Internal Medicine; ATTEND Internal Medicine
PROC: 5A09357 Assistance with Respiratory Ventilation, Less than 24 Consecutive Hours, Continuous Positive Airway Pressure (ICD-10-PCS; principal; 2023-11-26)
PROC: 4A033R1 Measurement of Arterial Saturation, Peripheral, Percutaneous Approach (ICD-10-PCS; 2023-11-26)
DX: I13.0 Hypertensive heart and chronic kidney disease with heart failure and stage 1 through stage 4 chronic kidney disease, or unspecified chronic kidney disease (principal); I50.33 Acute on chronic diastolic (congestive) heart failure; I60.9 Nontraumatic subarachnoid hemorrhage, unspecified; E87.1 Hypo-osmolality and hyponatremia; N17.9 Acute kidney failure, unspecified; I31.2 Hemopericardium, not elsewhere classified; I31.39 Other pericardial effusion (noninflammatory); E85.9 Amyloidosis, unspecified; Z66 Do not resuscitate; I48.91 Unspecified atrial fibrillation; Z51.5 Encounter for palliative care; G51.0 Bell's palsy; N18.9 Chronic kidney disease, unspecified; D63.1 Anemia in chronic kidney disease; I42.9 Cardiomyopathy, unspecified; E87.5 Hyperkalemia; Z87.891 Personal history of nicotine dependence; G47.30 Sleep apnea, unspecified; Z98.890 Other specified postprocedural states; Z79.01 Long term (current) use of anticoagulants; Z79.899 Other long term (current) drug therapy; Z11.52 Encounter for screening for COVID-19; E66.9 Obesity, unspecified; Z87.440 Personal history of urinary (tract) infections; Z99.81 Dependence on supplemental oxygen; Z68.36 Body mass index [BMI] 36.0-36.9, adult
CPT/HCPCS: 36415; 36600; 70450; 71045; 71250; 74176; 76775; 80048; 80053; 81001; 82803; 83735; 83880; 84484; 85025; 85027; 87502; 93005; 93010; 94760; 94762; 96365; 96374; 96375; 96376; 97161; 97165; 97530; 97535; 99285-25; A9270; G0378; J0696; J1200; J1630; J1940; J2060; J2270; J2405; J7121; U0002